=== PATIENT | male | born 1955 | race Caucasian/White ===

== ENCOUNTER 2021-03-20 01:51 | Day surgery (SDC) | payer MEDICARE, OTHER, SELFPAY ==
[2021-03-06 14:33] VITALS: BMI 35.9
--- NOTE | 2021-03-19 13:47 | P.PNAN_ITS ---
Anes - Initial Pre Proc Eval Procedure: Operation Date: 03/20/21 10:00 Proposed Procedures p Screening Colonoscopy - Chino Nation MD Date/Time: 03/19/21 13:47 Surgeon: Chino Nation MD Pre Op Diagnosis: neoplasm screening Patient Data Age: 65 Gender: M Height: 1.78 m Weight: 113.6 kg Allergies Allergy/AdvReac Type Severity Reaction Status Date / Time lisinopril Allergy Swelling Verified 03/20/21 09:18 losartan Allergy Swelling Verified 03/20/21 09:18 Home Medications Medication Instructions Recorded Confirmed Type amlodipine 10 mg PO DAILY 03/06/21 03/20/21 History atorvastatin 20 mg PO DAILY 03/06/21 03/20/21 History doxazosin 2 mg PO DAILY 03/06/21 03/20/21 History hydrochlorothiazide 25 mg PO DAILY 03/06/21 03/20/21 History metformin 1,000 mg PO DAILY 03/06/21 03/20/21 History metoprolol succinate 100 mg PO DAILY 03/06/21 03/20/21 History Patient hx anesthesia problems: none Family hx anesthesia problems: none Results Review: All pre-operative results and documents have been reviewed as part of the pre-operative evaluation. [facility] Past Medical History Medical History (Updated 03/20/21 @ 09:34 by Chino Nation MD) Diabetes type 2, controlled Hypertension MEY (obstructive sleep apnea) Social History Social History Smoking status: Former smoker Tobacco type: cigarettes Alcohol intake: current Alcohol use details: occasional use Substance use: current Substance use type: marijuana Living arrangements: with family Spiritual care concerns: No Anes - Eval Final PreProcedure Day of Procedure 03/19/21 13:47 Patient weight: obese Heart: regular rate and rhythm Lungs: clear to auscultation and normal air movement Airway: Mallampati scale class II Neurological: alert and oriented Last oral intake: >/= 8 hours ASA classification: III Emergent: no Anesthetic plan: proceed Anesthesia type and monitoring: general GIVS and standard monitoring Results Review: All pre-operative results and documents have been reviewed as part of the pre-operative evaluation. Informed Consent: The patient's anesthetic plan and its attendant risks and benefits were discussed with the patient/family/POA. Questions were solicited and answers provided to the satisfaction of the patient/family/POA.
[2021-03-20 09:10] VITALS: BP 149/79; PULSE 65; RESP 18; TEMP 36.8; O2SAT 98; BMI 37.5
[2021-03-20] MEDS: LACTATED RINGERS 1,000 ML 150 ML IV CONT (09:29)
--- NOTE | 2021-03-20 09:33 | P.CONGI_ITS ---
Assessment and Plan Assessment and plan (1) Encounter for screening colonoscopy: Code(s): Z12.11 - Encounter for screening for malignant neoplasm of colon Status: Acute Assessment and Plan: Patient presents for screening colonoscopy. Appears to be at average risk for colon polyps. GI Consult Note Consult date/time: 03/20/21 09:33 HPI: Jeremiah Kennedy is a 65 year old male Presents for screening colonoscopy. Patient's current weight appetite bowel movements are normal. He denies abdominal pain. He has had no bleeding. Family history is noncontributory. Patient reports prior colonoscopy 15 years ago that was unremarkable. Review of Systems Review of Systems: All systems reviewed & are unremarkable except as noted in HPI and below PMFSH Past Medical History Medical History (Updated 03/20/21 @ 09:34 by Chino Nation MD) Diabetes type 2, controlled Hypertension MEY (obstructive sleep apnea) Social History Social History Smoking status: Former smoker Tobacco type: cigarettes Alcohol intake: current Alcohol use details: occasional use Substance use: current Substance use type: marijuana Living arrangements: with family Spiritual care concerns: No Meds Home Medications and Allergies Home Medications Medication Instructions Recorded Confirmed Type amlodipine 10 mg PO DAILY 03/06/21 03/20/21 History atorvastatin 20 mg PO DAILY 03/06/21 03/20/21 History doxazosin 2 mg PO DAILY 03/06/21 03/20/21 History hydrochlorothiazide 25 mg PO DAILY 03/06/21 03/20/21 History metformin 1,000 mg PO DAILY 03/06/21 03/20/21 History metoprolol succinate 100 mg PO DAILY 03/06/21 03/20/21 History Allergies Allergy/AdvReac Type Severity Reaction Status Date / Time lisinopril Allergy Swelling Verified 03/20/21 09:18 losartan Allergy Swelling Verified 03/20/21 09:18 Vital Signs Vital Signs - 24 hr 03/20/21 09:10 Temperature 98.2 F Pulse Rate 65 Respiratory Rate 18 Blood Pressure 149/79 H Pulse Oximetry 98 Exam Narrative: Physical exam reveals patient be alert. Vital signs stable. HEENT exam is unremarkable. Patient is anicteric. Lungs are clear to a uscultation and percussion. Heart is without murmur or extra sounds. Abdominal exam bowel sounds are present soft nontender with no hepatosplenomegaly. Digital external rectal exam is normal.
[2021-03-20 10:32] VITALS: BP 107/69; PULSE 65; RESP 16; O2SAT 98
[2021-03-20 10:42] VITALS: BP 119/66; PULSE 67; RESP 16; O2SAT 92
[2021-03-20 10:52] VITALS: BP 136/80; PULSE 66; RESP 23; O2SAT 94
== END 2021-03-20 11:01 | disposition home or self-care (01) ==
PROVIDERS: Visit Provider Internal Medicine Gastroenterology
PROC: 0DJD8ZZ Inspection of Lower Intestinal Tract, Via Natural or Artificial Opening Endoscopic (ICD-10-PCS; CPT 45378; principal; 2021-03-20 10:00)
DX: Z12.11 Encounter for screening for malignant neoplasm of colon (principal); D17.5 Benign lipomatous neoplasm of intra-abdominal organs; K63.5 Polyp of colon; K64.8 Other hemorrhoids; K57.30 Diverticulosis of large intestine without perforation or abscess without bleeding; I10 Essential (primary) hypertension; E11.9 Type 2 diabetes mellitus without complications; G47.33 Obstructive sleep apnea (adult) (pediatric); Z79.84 Long term (current) use of oral hypoglycemic drugs; E66.9 Obesity, unspecified; Z68.37 Body mass index [BMI] 37.0-37.9, adult
CPT/HCPCS: 45385; 88305; J2704; J7120